=== PATIENT | male | born 1990 | race Caucasian/White ===

== ENCOUNTER 2024-03-15 23:52 | Emergency (ER) | payer BC ==
[2024-03-16] MEDS: ceFAZolin 1 GM Vial IM ONE (00:40)
[2024-03-16] MEDS: fentaNYL 50 MCG/ML SDV IM ONE (00:40)
[2024-03-16] MEDS: Diphtheria,Pertussis(Acell),Tetanus Vaccine 0.5 ML Syringe IM ONE (00:46)
[2024-03-16] MEDS: Lidocaine 1% 10 ML MDV INJECT ONE (01:01)
== END 2024-03-16 02:40 ==
LOC: MW.ED 23:52
DX: S62.627B Displaced fracture of middle phalanx of left little finger, initial encounter for open fracture (principal); Z23 Encounter for immunization; Z75.8 Other problems related to medical facilities and other health care; W23.1XXA Caught, crushed, jammed, or pinched between stationary objects, initial encounter
CPT/HCPCS: 12002; 73140; 90471; 96372; 99283; J0690; J3010; J3490